=== PATIENT | male | born 1950 | race Caucasian/White ===

== ENCOUNTER 2016-11-05 20:25 | Emergency (ER) | payer OTHER ==
[~2016-11-05] VITALS: Ht 182.9 cm; Wt 50.0 kg
[2016-11-05 20:29] VITALS: BP 149/79; PULSE 134; RESP 20; O2SAT 94
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
[2016-11-05 22:01] VITALS: BP 123/64; PULSE 94; RESP 16; O2SAT 95
[2016-11-05 22:02] VITALS: BP 123/64; PULSE 94; RESP 16; O2SAT 95
== END 2016-11-05 22:02 ==
LOC: SED 20:25
DX: F10.129 Alcohol abuse with intoxication, unspecified (principal); V53.5XXA Driver of pick-up truck or van injured in collision with car, pick-up truck or van in traffic accident, initial encounter; Y93.89 Activity, other specified; Y92.410 Unspecified street and highway as the place of occurrence of the external cause; Y99.8 Other external cause status